=== PATIENT | female | born 1935 | race African-American/Black ===

== ENCOUNTER → 2018-05-12 | Outpatient (CLI) | payer OTHER ==
[~2018-05-12] MED LIST: ASPI-496 PO; CITA40TA12 PO; DILT180C59 PO; LEVO25TA4 PO; LORA0.5T PO; LOSA100T6 PO; PANT40TA5 PO; PRAV80TA2 PO; PRED5TAB19 PO
== END | disposition home or self-care (01) ==
LOC: CFH 09:42
PROVIDERS: ATTEND Internal Medicine Cardiovascular Disease
DX: I08.1 Rheumatic disorders of both mitral and tricuspid valves (principal); I10 Essential (primary) hypertension; E78.5 Hyperlipidemia, unspecified; R00.2 Palpitations; Z87.891 Personal history of nicotine dependence
CPT/HCPCS: 93306

== ENCOUNTER → 2018-08-05 | Outpatient (CLI) | payer OTHER ==
[~2018-08-05] MED LIST changes: -LOSA100T6 PO; +LOSA100T7 PO
== END | disposition home or self-care (01) ==
LOC: CFH 10:31
PROVIDERS: ATTEND Internal Medicine
DX: Z13.820 Encounter for screening for osteoporosis (principal); M85.88 Other specified disorders of bone density and structure, other site; G31.9 Degenerative disease of nervous system, unspecified; N32.89 Other specified disorders of bladder
CPT/HCPCS: 76770; 77080

== ENCOUNTER → 2018-08-12 | Outpatient (CLI) | payer OTHER | END | disposition home or self-care (01) | LOC: CFH 14:34 | PROVIDERS: ATTEND Specialist | DX: J47.9 Bronchiectasis, uncomplicated (principal); D86.0 Sarcoidosis of lung | CPT/HCPCS: 71250 ==

== ENCOUNTER → 2019-03-23 | Outpatient (CLI) | payer MEDICARE ==
[~2019-03-23] MED LIST changes: +LOSA100T14 PO; -LOSA100T7 PO
== END | disposition home or self-care (01) ==
LOC: CFH 12:37
PROVIDERS: ATTEND Internal Medicine
DX: M25.562 Pain in left knee (principal)

== ENCOUNTER 2020-11-21 00:27 | Emergency (ER) | payer MEDICARE ==
[~2020-11-21] VITALS: Ht 165.1 cm; Wt 55.0 kg
[~2020-11-21 00:27] MED LIST changes: -PANT40TA5 PO; +PANT40TA6 PO
[2020-11-21 01:03] LABS: BASOPHILS % (AUTO) 1 % (0-1); EOSINOPHILS % (AUTO) 2 % (1-7); LYMPHOCYTES % (AUTO) 35 % (22-44); MEAN CORPUSCULAR HEMOGLOBIN 31.5 pg (27.0-34.8); MEAN CORPUSCULAR HGB CONC 34.2 g/dL (32.4-35.8); MONOCYTES % (AUTO) 14 % (2-9); NEUTROPHILS % (AUTO) 48 % (42-75); PLATELET COUNT 323 x10^3/uL (130-400); RED BLOOD COUNT 3.67 x10^6/uL (3.82-5.3); RED CELL DISTRIBUTION WIDTH 13.8 % (9.6-15.2)
[2020-11-21 01:16] LABS: ALANINE AMINOTRANSFERASE 16 U/L (12-78); ALBUMIN 3.3 g/dL (3.4-5.0); ANION GAP 6 mmol/L (5-15); CALCIUM 9.7 mg/dL (8.5-10.1); CHLORIDE 111 mmol/L (98-107); CREATININE 1.32 mg/dL (0.55-1.02)
[2020-11-21 01:20] LABS: ALKALINE PHOSPHATASE 58 U/L (45-117); BILIRUBIN,TOTAL 0.3 mg/dL (0.2-1.0); TROPONIN I < 0.015 ng/mL (0.000-0.045)
[2020-11-21 01:49] LABS: MD SCAN
[2020-11-21 02:08] VITALS: BP 115/76
== END 2020-11-21 02:10 | disposition home or self-care (01) ==
LOC: ED 01:30
DX: S40.011A Contusion of right shoulder, initial encounter (principal); S50.01XA Contusion of right elbow, initial encounter; S09.90XA Unspecified injury of head, initial encounter; F03.90 Unspecified dementia, unspecified severity, without behavioral disturbance, psychotic disturbance, mood disturbance, and anxiety; I48.0 Paroxysmal atrial fibrillation; Z79.899 Other long term (current) drug therapy; W19.XXXA Unspecified fall, initial encounter; Y93.89 Activity, other specified; Y92.098 Other place in other non-institutional residence as the place of occurrence of the external cause; Y99.8 Other external cause status
CPT/HCPCS: 36415; 70450; 71045; 80053; 84484; 85025; 93005; 99285

== ENCOUNTER 2021-04-09 14:07 | Emergency (ER) | payer MEDICARE ==
[~2021-04-09] VITALS: Ht 170.2 cm; Wt 62.0 kg
[2021-04-09 14:23] VITALS: BP 139/90
[2021-04-09] MEDS ORDERED: PLEASE ENTER HEIGHT AND WEIGHT MC SCH (14:30)
[2021-04-09] MEDS ORDERED: SODIUM CHLORIDE 0.9% 1,000 ML IV ONE (14:30)
[2021-04-09] MEDS ORDERED: SODIUM CHLORIDE FLUSH 10ML SYR IVF ONE (14:30)
[2021-04-09 14:51] LABS: BASOPHILS % (AUTO) 1 % (0-1); EOSINOPHILS % (AUTO) 2 % (1-7); LYMPHOCYTES % (AUTO) 21 % (22-44); MEAN CORPUSCULAR HEMOGLOBIN 31.3 pg (27.0-34.8); MEAN PLATELET VOLUME 8.2 fL (7.4-10.4); MONOCYTES % (AUTO) 9 % (2-9); NEUTROPHILS % (AUTO) 66 % (42-75); PLATELET COUNT 300 x10^3/uL (130-400); RED BLOOD COUNT 3.85 x10^6/uL (3.82-5.3); RED CELL DISTRIBUTION WIDTH 14.1 % (9.6-15.2)
[2021-04-09 14:53] LABS: ALBUMIN 3.1 g/dL (3.4-5.0); ANION GAP 7 mmol/L (5-15); CALCIUM 9.8 mg/dL (8.5-10.1); CHLORIDE 110 mmol/L (98-107)
[2021-04-09 15:04] LABS: ALANINE AMINOTRANSFERASE 14 U/L (12-78); ALKALINE PHOSPHATASE 67 U/L (45-117); BILIRUBIN,TOTAL 0.3 mg/dL (0.2-1.0); CREATININE 1.23 mg/dL (0.55-1.02); TOTAL PROTEIN 6.9 g/dL (6.4-8.2)
[2021-04-09 15:41] LABS: MICROSCOPIC AUTO
--- NOTE | 2021-04-09 18:09 | NUR ---
repeat ekg per pt c/o of chest pain
== END 2021-04-09 18:26 | disposition home or self-care (01) ==
LOC: ED 16:54
DX: E86.0 Dehydration (principal); R11.2 Nausea with vomiting, unspecified; E53.1 Pyridoxine deficiency; I48.91 Unspecified atrial fibrillation
CPT/HCPCS: 36415; 80053; 81001; 83735; 84443; 85025; 87086; 87147; 93005; 96360; 96361; 99284; J7030

== ENCOUNTER 2021-06-19 13:10 | Inpatient (IN) | payer MEDICARE ==
[~2021-06-19] VITALS: Ht 154.9 cm; Wt 48.3 kg
--- NOTE | 2021-06-19 13:27 | NUR ---
BIBA AFTER DAUGHTER STATED SHE BECAME NON-VERBAL. PER DAUGHTER PT WAS WALKING AND TALKING YESTERDAY. HX OF DEMENTIA. PT ATTACHED TO MONITORS. CHANTELLE. TIM. DAUGHTER TANCE AT BEDSIDE. DAUGHTER TANCE AND SON (WHO LIVES OUT OF STATE) POA. DAUGHTER STATES PT IS A HOSPICE PT AND DNR, BUT DAUGHTER WANTS EVERYTHING DONE EXCEPT CPR AT THIS TIMES. AWAITING ORDERS.
--- NOTE | 2021-06-19 14:46 | NUR ---
DR. ARIAS TO BEDSIDE
--- NOTE | 2021-06-19 15:21 | NUR ---
AMADOR COLLECTED. VSS. DUMONT.
[2021-06-19 15:32] LABS: ALANINE AMINOTRANSFERASE 15 U/L (12-78); ALBUMIN 3.2 g/dL (3.4-5.0); ANION GAP 8 mmol/L (5-15); CALCIUM 9.9 mg/dL (8.5-10.1); CHLORIDE 108 mmol/L (98-107); CREATININE 0.84 mg/dL (0.55-1.02)
[2021-06-19 15:34] LABS: INTERNATIONAL NORMALIZED RATIO 1.05 (0.93-1.1); PROTHROMBIN TIME 11.2 Seconds (9.6-11.5)
[2021-06-19 15:35] LABS: ALKALINE PHOSPHATASE 73 U/L (45-117); BILIRUBIN,TOTAL 0.5 mg/dL (0.2-1.0); TOTAL PROTEIN 7.6 g/dL (6.4-8.2)
[2021-06-19 15:44] LABS: MICROSCOPIC NOT IND
[2021-06-19 16:05] LABS: BASOPHILS % (AUTO) 1 % (0-1); EOSINOPHILS % (AUTO) 1 % (1-7); LYMPHOCYTES % (AUTO) 20 % (22-44); MEAN CORPUSCULAR HEMOGLOBIN 30.6 pg (27.0-34.8); MEAN CORPUSCULAR HGB CONC 33.6 g/dL (32.4-35.8); MEAN PLATELET VOLUME 8.5 fL (7.4-10.4); MONOCYTES % (AUTO) 8 % (2-9); NEUTROPHILS % (AUTO) 71 % (42-75); PLATELET COUNT 365 x10^3/uL (130-400); RED CELL DISTRIBUTION WIDTH 13.8 % (9.6-15.2)
[2021-06-19] MEDS ORDERED: OXYcodone IR 5MG TABLET PO PRN (16:30)
[2021-06-19] MEDS ORDERED: POLYETHYLENE GLYCOL 17 GM PACKET PO PRN (16:30)
[2021-06-19] MEDS ORDERED: BISACODYL 10 MG SUPP PR PRN (16:30)
[2021-06-19] MEDS ORDERED: ONDANSETRON 2MG/ML, 2ML IVPush PRN (16:30)
[2021-06-19] MEDS ORDERED: morphine SULFATE 10 MG/ML, 1ML IVPush PRN (16:30)
[2021-06-19] MEDS ORDERED: SODIUM CHLORIDE FLUSH 10ML SYR IVF PRN (16:30)
--- NOTE | 2021-06-19 16:56 | NUR ---
PT RESTING IN BED WITH FAMILY AT BEDSIDE. VSS. DUMONT.
[2021-06-19] MEDS ORDERED: ENALAPRILAT 1.25 MG/ML, 1ML ONE (18:07)
[2021-06-19] MEDS ORDERED: ACETAMINOPHEN 325 MG TABLET ONE (18:09)
[2021-06-19] MEDS: ENALAPRILAT 1.25 MG/ML, 2ML IVPush PRN (18:15)
[2021-06-19] MEDS: SODIUM CHLORIDE 0.9% 1,000 ML IV SCH ×2 (18:24→20:59)
[2021-06-19] MEDS: ACETAMINOPHEN 325 MG TABLET PO PRN (18:24)
--- NOTE | 2021-06-19 19:54 | NUR ---
Attempted to call report to floor, RN to call back
[2021-06-19] MEDS: LABETALOL 5MG/ML, 20ML IVPush PRN (20:59)
[2021-06-19 21:07] VITALS: BP 153/64
[2021-06-20] VITALS (7 sets, daily range): BP systolic 157–174; BP diastolic 60–81
[2021-06-20] MEDS: LABETALOL 5MG/ML, 20ML IVPush PRN ×3 (03:59→20:55)
[2021-06-20 04:13] LABS: BASOPHILS % (AUTO) 1 % (0-1); EOSINOPHILS % (AUTO) 1 % (1-7); LYMPHOCYTES % (AUTO) 26 % (22-44); MEAN CORPUSCULAR HEMOGLOBIN 30.9 pg (27.0-34.8); MEAN PLATELET VOLUME 8.2 fL (7.4-10.4); MONOCYTES % (AUTO) 14 % (2-9); NEUTROPHILS % (AUTO) 59 % (42-75); PLATELET COUNT 322 x10^3/uL (130-400); RED BLOOD COUNT 3.77 x10^6/uL (3.82-5.3); RED CELL DISTRIBUTION WIDTH 13.5 % (9.6-15.2)
[2021-06-20 04:22] LABS: ALBUMIN 2.8 g/dL (3.4-5.0); ANION GAP 6 mmol/L (5-15); CALCIUM 9.2 mg/dL (8.5-10.1); CHLORIDE 109 mmol/L (98-107)
[2021-06-20 04:28] LABS: ALANINE AMINOTRANSFERASE 12 U/L (12-78); ALKALINE PHOSPHATASE 62 U/L (45-117); BILIRUBIN,TOTAL 0.5 mg/dL (0.2-1.0); CREATININE 0.88 mg/dL (0.55-1.02); TOTAL PROTEIN 6.8 g/dL (6.4-8.2)
[2021-06-20] MEDS ORDERED: LEVOTHYROXINE 25 MCG TABLET PO SCH ×2 (06:00)
[2021-06-20] MEDS: LOSARTAN 100 MG TAB PO SCH (09:00)
[2021-06-20] MEDS: DILTIAZEM CD 180 MG CAP.ER.24H PO SCH (09:00)
[2021-06-20] MEDS: SENNA/DOCUSATE TABLET PO SCH (09:00)
[2021-06-20] MEDS ORDERED: LEVOTHYROXINE 100 MCG INJ IV SCH (09:00)
[2021-06-20] MEDS: CITALOPRAM 20 MG TABLET PO SCH (09:00)
[2021-06-20] MEDS: HYDROCORTISONE 100 MG INJ. IVPush SCH ×2 (09:20→20:24)
[2021-06-20] MEDS: LEVOTHYROXINE 100 MCG INJ IVPush SCH (09:20)
[2021-06-20] MEDS: SODIUM CHLORIDE 0.9% 1,000 ML IV SCH ×2 (14:20→18:20)
[2021-06-20] MEDS: THIAMINE 200 MG in SODIUM CHLORIDE 0.9% 50 ML IV SCH (20:25)
[2021-06-20] MEDS ORDERED: ENALAPRILAT 1.25 MG/ML, 1ML ONE (22:00)
[2021-06-20] MEDS: ENALAPRILAT 1.25 MG/ML, 2ML IVPush PRN (22:06)
[2021-06-21] VITALS (7 sets, daily range): BP systolic 151–167; BP diastolic 71–94
[2021-06-21] MEDS: ACETAMINOPHEN 325 MG TABLET PO PRN (01:33)
[2021-06-21] MEDS: LABETALOL 5MG/ML, 20ML IVPush PRN ×3 (02:10→21:25)
[2021-06-21] MEDS ORDERED: LABETALOL 5MG/ML, 20ML IVPush PRN (04:30)
[2021-06-21 08:29] LABS: BASOPHILS % (AUTO) 1 % (0-1); EOSINOPHILS % (AUTO) 0 % (1-7); LYMPHOCYTES % (AUTO) 16 % (22-44); MEAN CORPUSCULAR HEMOGLOBIN 30.3 pg (27.0-34.8); MEAN CORPUSCULAR HGB CONC 33.2 g/dL (32.4-35.8); MEAN PLATELET VOLUME 8.2 fL (7.4-10.4); MONOCYTES % (AUTO) 11 % (2-9); NEUTROPHILS % (AUTO) 73 % (42-75); PLATELET COUNT 313 x10^3/uL (130-400); RED BLOOD COUNT 3.83 x10^6/uL (3.82-5.3); RED CELL DISTRIBUTION WIDTH 13.7 % (9.6-15.2)
[2021-06-21 08:39] LABS: ALANINE AMINOTRANSFERASE 14 U/L (12-78); ALBUMIN 2.9 g/dL (3.4-5.0); CALCIUM 9.3 mg/dL (8.5-10.1); CREATININE 0.75 mg/dL (0.55-1.02)
[2021-06-21 08:42] LABS: ALKALINE PHOSPHATASE 60 U/L (45-117); BILIRUBIN,TOTAL 0.6 mg/dL (0.2-1.0); TOTAL PROTEIN 6.9 g/dL (6.4-8.2)
[2021-06-21 08:49] LABS: ANION GAP 5 mmol/L (5-15); CHLORIDE 109 mmol/L (98-107)
[2021-06-21] MEDS: DILTIAZEM CD 180 MG CAP.ER.24H PO SCH (09:00)
[2021-06-21] MEDS: HYDROCORTISONE 100 MG INJ. IVPush SCH ×2 (10:04→21:25)
[2021-06-21] MEDS: LEVOTHYROXINE 100 MCG INJ IVPush SCH (10:04)
[2021-06-21] MEDS: SODIUM CHLORIDE 0.9% 1,000 ML IV SCH ×3 (10:06→21:28)
[2021-06-21] MEDS: CITALOPRAM 20 MG TABLET PO SCH (10:07)
[2021-06-21] MEDS: SENNA/DOCUSATE TABLET PO SCH (10:08)
[2021-06-21] MEDS: LOSARTAN 100 MG TAB PO SCH (10:08)
[2021-06-21] MEDS: THIAMINE 200 MG in SODIUM CHLORIDE 0.9% 50 ML IV SCH ×2 (11:22→21:24)
[2021-06-21] MEDS ORDERED: OMNIPAQUE 350 MG/ML, 100ML BOTTLE ONE (17:52)
[2021-06-22] VITALS (7 sets, daily range): BP systolic 150–176; BP diastolic 70–82
[2021-06-22] MEDS ORDERED: BENZONATATE 100 MG CAPSULE PO PRN (01:00)
[2021-06-22] MEDS ORDERED: DIPHENHYDRAMINE 50 MG/ML, 1ML IVPush ONE (01:00)
[2021-06-22] MEDS: LABETALOL 5MG/ML, 20ML IVPush PRN ×3 (05:12→16:57)
[2021-06-22 08:10] LABS: BASOPHILS % (AUTO) 1 % (0-1); EOSINOPHILS % (AUTO) 0 % (1-7); LYMPHOCYTES % (AUTO) 11 % (22-44); MEAN CORPUSCULAR HEMOGLOBIN 30.4 pg (27.0-34.8); MEAN CORPUSCULAR HGB CONC 33.7 g/dL (32.4-35.8); MEAN PLATELET VOLUME 8.1 fL (7.4-10.4); MONOCYTES % (AUTO) 12 % (2-9); NEUTROPHILS % (AUTO) 76 % (42-75); PLATELET COUNT 308 x10^3/uL (130-400); RED BLOOD COUNT 3.58 x10^6/uL (3.82-5.3); RED CELL DISTRIBUTION WIDTH 13.6 % (9.6-15.2)
[2021-06-22 08:20] LABS: ANION GAP 7 mmol/L (5-15); CHLORIDE 109 mmol/L (98-107); CREATININE 0.66 mg/dL (0.55-1.02)
[2021-06-22] MEDS: LEVOTHYROXINE 100 MCG INJ IVPush SCH (08:24)
[2021-06-22] MEDS: ACETAMINOPHEN 325 MG TABLET PO PRN (08:24)
[2021-06-22] MEDS: LOSARTAN 100 MG TAB PO SCH (08:24)
[2021-06-22] MEDS: CITALOPRAM 20 MG TABLET PO SCH (08:24)
[2021-06-22] MEDS: DILTIAZEM CD 180 MG CAP.ER.24H PO SCH (08:25)
[2021-06-22] MEDS: HYDROCORTISONE 100 MG INJ. IVPush SCH ×2 (08:25→21:10)
[2021-06-22] MEDS: SENNA/DOCUSATE TABLET PO SCH (08:25)
[2021-06-22] MEDS: SODIUM CHLORIDE 0.9% 1,000 ML IV SCH ×2 (10:20→21:36)
[2021-06-22] MEDS ORDERED: GADOTERATE 5 MMOL/10ML SYR ONE (10:27)
[2021-06-22] MEDS: THIAMINE 200 MG in SODIUM CHLORIDE 0.9% 50 ML IV SCH ×2 (11:41→22:50)
[2021-06-22] MEDS: POTASSIUM CHLORIDE 20 MEQ PACKET PO SCH (22:50)
[2021-06-23] VITALS (10 sets, daily range): BP systolic 159–171; BP diastolic 73–91
[2021-06-23] MEDS: LABETALOL 5MG/ML, 20ML IVPush PRN ×3 (01:38→15:52)
[2021-06-23] MEDS: POTASSIUM CHLORIDE 20 MEQ PACKET PO SCH (04:42)
[2021-06-23 05:06] LABS: BASOPHILS % (AUTO) 0 % (0-1); EOSINOPHILS % (AUTO) 0 % (1-7); LYMPHOCYTES % (AUTO) 15 % (22-44); MEAN CORPUSCULAR HEMOGLOBIN 30.6 pg (27.0-34.8); MEAN PLATELET VOLUME 8.3 fL (7.4-10.4); MONOCYTES % (AUTO) 10 % (2-9); NEUTROPHILS % (AUTO) 74 % (42-75); PLATELET COUNT 297 x10^3/uL (130-400); RED BLOOD COUNT 3.56 x10^6/uL (3.82-5.3); RED CELL DISTRIBUTION WIDTH 13.6 % (9.6-15.2)
[2021-06-23 05:08] LABS: ANION GAP 6 mmol/L (5-15); CALCIUM 8.9 mg/dL (8.5-10.1); CHLORIDE 109 mmol/L (98-107); CREATININE 0.67 mg/dL (0.55-1.02)
[2021-06-23] MEDS ORDERED: MAGNESIUM SULFATE PMX 2GM/50ML 50 ML IV ONE (08:30)
[2021-06-23] MEDS: POTASSIUM ACID PHOSPHATE 500 MG TABLET.SOL NG SCH ×3 (08:30→20:43)
[2021-06-23] MEDS: CITALOPRAM 20 MG TABLET PO SCH ×2 (09:00→13:45)
[2021-06-23] MEDS: DILTIAZEM CD 180 MG CAP.ER.24H PO SCH (09:00)
[2021-06-23] MEDS: LEVOTHYROXINE 100 MCG INJ IVPush SCH (09:00)
[2021-06-23] MEDS: SENNA/DOCUSATE TABLET PO SCH (09:00)
[2021-06-23] MEDS: MAGNESIUM OXIDE 400 MG TABLET NG SCH (13:43)
[2021-06-23] MEDS: LOSARTAN 100 MG TAB PO SCH (13:43)
[2021-06-23] MEDS: ACETAMINOPHEN 325 MG TABLET PO PRN (13:43)
[2021-06-23] MEDS: HYDROCORTISONE 100 MG INJ. IVPush SCH (13:43)
[2021-06-23] MEDS: THIAMINE 200 MG in SODIUM CHLORIDE 0.9% 50 ML IV SCH (13:43)
[2021-06-23] MEDS: DILTIAZEM 30 MG TABLET PO SCH (20:44)
[2021-06-23] MEDS: AMPICILLIN/SULBACTAM 3 GM in SODIUM CHLORIDE 0.9% 100 ML IV SCH (20:50)
[2021-06-24 00:34] VITALS: BP 154/71
[2021-06-24 02:09] VITALS: BP 167/73
[2021-06-24] MEDS: POTASSIUM ACID PHOSPHATE 500 MG TABLET.SOL NG SCH (02:11)
[2021-06-24] MEDS: DILTIAZEM 30 MG TABLET PO SCH (02:12)
[2021-06-24] MEDS: AMPICILLIN/SULBACTAM 3 GM in SODIUM CHLORIDE 0.9% 100 ML IV SCH ×2 (02:13→09:53)
[2021-06-24] MEDS: THIAMINE 200 MG in SODIUM CHLORIDE 0.9% 50 ML IV SCH ×2 (02:13→12:14)
[2021-06-24 03:53] VITALS: BP 155/82
[2021-06-24 05:07] LABS: BASOPHILS % (AUTO) 1 % (0-1); EOSINOPHILS % (AUTO) 1 % (1-7); LYMPHOCYTES % (AUTO) 13 % (22-44); MEAN CORPUSCULAR HEMOGLOBIN 30.9 pg (27.0-34.8); MEAN CORPUSCULAR HGB CONC 34.2 g/dL (32.4-35.8); MEAN PLATELET VOLUME 8.4 fL (7.4-10.4); MONOCYTES % (AUTO) 11 % (2-9); NEUTROPHILS % (AUTO) 75 % (42-75); PLATELET COUNT 274 x10^3/uL (130-400); RED BLOOD COUNT 3.52 x10^6/uL (3.82-5.3)
[2021-06-24 05:15] LABS: ANION GAP 6 mmol/L (5-15); CALCIUM 8.2 mg/dL (8.5-10.1); CHLORIDE 105 mmol/L (98-107); CREATININE 0.59 mg/dL (0.55-1.02)
[2021-06-24] MEDS ORDERED: LEVOTHYROXINE 25 MCG TABLET NG SCH (06:00)
[2021-06-24 08:00] VITALS: BP 170/80
[2021-06-24] MEDS ORDERED: LOSARTAN 100 MG TAB PO SCH (09:00)
[2021-06-24] MEDS ORDERED: POTASSIUM ACID PHOSPHATE 500 MG TABLET.SOL NG SCH (09:00)
[2021-06-24] MEDS: SENNA/DOCUSATE TABLET PO SCH (09:00)
[2021-06-24] MEDS: MAGNESIUM OXIDE 400 MG TABLET NG SCH (09:50)
[2021-06-24] MEDS: CITALOPRAM 20 MG TABLET PO SCH (09:50)
[2021-06-24] MEDS ORDERED: DILTIAZEM 30 MG TABLET PO SCH (14:00)
== END 2021-06-24 14:12 | disposition hospice, inpatient (51) | DRG 64 ==
LOC: ED 16:12 → EDIP 16:13 → CCU 20:27 → 4EST 06-20 15:44 → 4WST 06-21 00:22
PROVIDERS: ADMIT Internal Medicine; ATTEND Internal Medicine
PROC: 0T9B70Z Drainage of Bladder with Drainage Device, Via Natural or Artificial Opening (ICD-10-PCS; principal; 2021-06-19)
DX: I61.1 Nontraumatic intracerebral hemorrhage in hemisphere, cortical (principal); G93.41 Metabolic encephalopathy; E85.4 Organ-limited amyloidosis; I60.9 Nontraumatic subarachnoid hemorrhage, unspecified; D72.829 Elevated white blood cell count, unspecified; E03.9 Hypothyroidism, unspecified; E78.5 Hyperlipidemia, unspecified; E83.39 Other disorders of phosphorus metabolism; E83.42 Hypomagnesemia; F03.90 Unspecified dementia, unspecified severity, without behavioral disturbance, psychotic disturbance, mood disturbance, and anxiety; F32.9 Major depressive disorder, single episode, unspecified; I10 Essential (primary) hypertension; I68.0 Cerebral amyloid angiopathy; K21.9 Gastro-esophageal reflux disease without esophagitis; R13.10 Dysphagia, unspecified; Z51.5 Encounter for palliative care; Z66 Do not resuscitate; Z74.01 Bed confinement status; Z79.52 Long term (current) use of systemic steroids; Z82.49 Family history of ischemic heart disease and other diseases of the circulatory system; Z87.891 Personal history of nicotine dependence; Z92.241 Personal history of systemic steroid therapy; Z91.013 Allergy to seafood; I69.991 Dysphagia following unspecified cerebrovascular disease
CPT/HCPCS: 36415; 70450; 70496; 70498; 70553; 71045; 74018; 80048; 80053; 81003; 82962; 83605; 83735; 84100; 85025; 85610; 85730; 87081; 93306; 96374; 96375; G0378; J0295; J2405; J3411; Q9967; A9575; J1720; J2270; J3475; J7030

== ENCOUNTER 2021-06-24 11:55 | Inpatient (IN) | payer OTHER ==
[~2021-06-24] VITALS: Ht 154.9 cm; Wt 48.3 kg
[2021-06-24] MEDS ORDERED: SCOPOLAMINE 1MG PATCH TD SCH (14:00)
[2021-06-24] MEDS ORDERED: ONDANSETRON 2MG/ML, 2ML IVPush PRN (14:00)
[2021-06-24] MEDS ORDERED: PLEASE ENTER HEIGHT AND WEIGHT MC SCH (15:00)
[2021-06-24] MEDS: LORazepam 2 MG/ML, 1ML IVPush SCH (18:14)
[2021-06-24] MEDS: MORPHINE SULFATE 4 MG/ML, 1ML IVPush PRN (18:15)
[2021-06-24] MEDS: SODIUM CHLORIDE FLUSH 3ML SYRINGE IVF SCH (21:00)
[2021-06-25] MEDS: LORazepam 2 MG/ML, 1ML IVPush SCH ×5 (00:09→23:53)
[2021-06-25] MEDS: LORazepam 2 MG/ML, 1ML IVPush PRN ×7 (02:06→22:45)
[2021-06-25] MEDS: MORPHINE SULFATE 4 MG/ML, 1ML IVPush PRN ×6 (02:44→22:11)
[2021-06-25] MEDS: ATROPINE OPHTH SOLN 1%, 5ML BC PRN (03:00)
[2021-06-25] MEDS: SODIUM CHLORIDE FLUSH 3ML SYRINGE IVF SCH ×2 (09:00→20:41)
[2021-06-25] MEDS: morphine SULFATE 100 MG in DEXTROSE 5% 90 ML IV PRN ×2 (12:06→23:15)
[2021-06-26] MEDS: MORPHINE SULFATE 4 MG/ML, 1ML IVPush PRN (00:07)
[2021-06-26] MEDS: LORazepam 2 MG/ML, 1ML IVPush SCH ×3 (05:37→18:29)
[2021-06-26] MEDS: morphine SULFATE 100 MG in DEXTROSE 5% 90 ML IV PRN (06:01)
[2021-06-26] MEDS: SODIUM CHLORIDE FLUSH 3ML SYRINGE IVF SCH ×2 (09:00→20:37)
[2021-06-26] MEDS ORDERED: FENTANYL 25 MCG PATCH TD SCH (10:30)
[2021-06-26] MEDS ORDERED: HYDROmorphone/PF 20 MG in SODIUM CHLORIDE 0.9% 98 ML IV PRN (11:00)
[2021-06-26] MEDS: ATROPINE OPHTH SOLN 1%, 5ML BC PRN (19:34)
[2021-06-29] MEDS ORDERED: FENTANYL REMOVE PATCH NOTE XX SCH (10:30)
== END 2021-06-27 01:00 | DRG 545 ==
LOC: 4WST 14:14 → 4NW 19:06
PROVIDERS: ADMIT Internal Medicine; ATTEND Internal Medicine
DX: E85.4 Organ-limited amyloidosis (principal); I61.1 Nontraumatic intracerebral hemorrhage in hemisphere, cortical; G93.41 Metabolic encephalopathy; R13.10 Dysphagia, unspecified; K21.9 Gastro-esophageal reflux disease without esophagitis; I10 Essential (primary) hypertension; F32.9 Major depressive disorder, single episode, unspecified; F03.90 Unspecified dementia, unspecified severity, without behavioral disturbance, psychotic disturbance, mood disturbance, and anxiety; E83.42 Hypomagnesemia; E83.39 Other disorders of phosphorus metabolism; E78.5 Hyperlipidemia, unspecified; E03.9 Hypothyroidism, unspecified; D72.829 Elevated white blood cell count, unspecified; I25.10 Atherosclerotic heart disease of native coronary artery without angina pectoris; I68.0 Cerebral amyloid angiopathy; Z79.899 Other long term (current) drug therapy
CPT/HCPCS: G0378; J1170; J2270; J2060